=== PATIENT | female | born 1985 | race Caucasian/White ===

== ENCOUNTER 2017-10-17 14:36 | Emergency (ER) | payer OTHER ==
[~2017-10-17] VITALS: Ht 160 cm; Wt 99.8 kg
[~2017-10-17 14:36] MED LIST: ALBU2.5V36 INH; AZIT-18 PO; BISA10SU62 RC; CETI-184 PO; CITA-139 PO; DICY10CA11 PO; DUL20 PO; ESTR1PAT2 TD; FLUT16SP19 NS; GEMF600T91 PO; HYDR-4309 PO; LORA-630 PO; METH18TA11 PO; OMEP-125 PO; OXCA150T45 PO; PRED-1 PO; PSYL1000 MC; ROPI1TAB36 PO; SOD1POWD MC; SUMA25TA27 PO; [UNRECOGNIZED DRUG - CODE] PO
[2017-10-17] MEDS ORDERED: diphenhydrAMINE 50 MG/ML VIAL IVP ONE (14:50)
[2017-10-17] MEDS ORDERED: FAMOTIDINE(*) 20MG/50ML PREMIX 50 ML IVPB ONE (14:50)
[2017-10-17] MEDS ORDERED: methylPREDNIS SUCC 125 MG/2ML IVP ONE (14:50)
--- NOTE | 2017-10-17 14:53 | ER Report ---
History and Physical Time Seen By MD: 14:40 Hx. of Stated Complaint: HIVES EVERYWHERE FOR A WEEK. ON PREDINSONE, BENADRYL. GETTING WORSE HPI/ROS CHIEF COMPLAINT: Hives HISTORY OF PRESENT ILLNESS: Patient is a 32-year-old female accompanied by her significant other, who presents the ED with complaint of hives for the past 10 days. Patient states that she did see her primary care provider 3 days ago and was prescribed prednisone. She states that she has also been taking some Benadryl intermittently. She states that her last dose of Benadryl was 10 hours ago. Patient states that she feels that the hives have slightly worsened and was told by her primary care provider to go to the ER if this happens. Patient states that otherwise she is feeling well. She denies any difficulty breathing, cough, fever, tongue/lip swelling. She denies any new medications, foods, soaps , detergents. She states that she normally does not have hives. She states she did have hives about 18 years ago from stress. She states that she does not feel stressed right now. REVIEW OF SYSTEMS: Respiratory: No cough, no dyspnea. Cardiovascular: No chest pain, no palpitations. Gastrointestinal: No vomiting, no abdominal pain. Musculoskeletal: No back pain. Skin: See history of present illness. Allergies: Coded Allergies: promethazine (Verified Allergy, Intermediate, 10/17/17) Home Meds Active Scripts Methylprednisolone (METHYLPREDNISOLONE) 4 Mg Tab.ds.pk, 4 MG PO DIRECTED, #1 PACK Prov:YURI SMITH PA-C 10/17/17 Prednisone 10 Mg Tab (PREDNISONE 10 MG TAB) 10 Mg Tablet, 10 MG PO QDAY for reduce inflammation, #5 TAB Prov:ANTOINETTE GIL DO 09/13/16 Hydrocodone Bit/Acetaminophen (NORCO 5-325 TABLET) 1 Each Tablet, 1 EACH PO Q4H Y for PAIN, #12 TAB Prov:ANTOINETTE GIL DO 09/13/16 Reported Medications Albuterol Sulfate 0.083% (ALBUTEROL SULFATE 0.083%) 2.5 Mg/3 Ml Vial.neb, 2.5 MG INH, INH 09/12/16 Fluticasone Prop 50 Mcg Ns (FLONASE 50 MCG NS) 16 Gm [place].susp, 1 SPRAY NS BID , BOT 09/12/16 Sumatriptan Succinate (SUMATRIPTAN SUCCINATE) 25 Mg Tablet, 25 MG PO ONCE 09/12/16 Gemfibrozil (GEMFIBROZIL) 600 Mg Tablet, 600 MG PO BID 09/12/16 Ropinirole Hcl (ROPINIROLE HCL) 1 Mg Tablet, 1 MG PO TID 09/12/16 Dicyclomine Hcl (DICYCLOMINE HCL) 10 Mg Capsule, 10 MG PO QID, CAPSULE 09/12/16 Psyllium Husk (PSYLLIUM HUSK) 1,000 Gm Powder, 1000 GM MC 09/12/16 Methylphenidate Hcl (METHYLPHENIDATE ER) 18 Mg Tab.er.24, 18 MG PO QDAY 09/12/16 Estradiol (ESTRADIOL 0.025 MG) 1 Each Patch.tdwk, 1 EACH TD Q7D, PATCH.WK 09/12/16 Oxcarbazepine (OXCARBAZEPINE) 150 Mg Tablet, 150 MG PO 09/12/16 Cetirizine Hcl (CETIRIZINE HCL) 10 Mg Tab.chew, 10 MG PO QDAY, TAB.CHEW 09/12/16 Omeprazole (OMEPRAZOLE) 20 Mg Capsule.dr, 1 CAP PO BID, CAP 09/12/16 Duloxetine Hcl (CYMBALTA) 20 Mg Capcr, 20 MG PO QDAY, #5 CAP 09/12/16 Etodolac (ETODOLAC) 200 Mg Capsule, 200 MG PO, CAPSULE 09/12/16 Sod Phosphate Dibasic,Hepathyd (SODIUM PHOSPHATE) 1 Gm Powder, 1 GM MC 09/12/16 Citalopram Hydrobromide (CITALOPRAM HBR) 20 Mg Tablet, 20 MG PO QDAY, #5 TAB 09/12/16 Bisacodyl (BISACODYL) 10 Mg Supp.rect, 10 MG RC, SUPP.RECT 09/12/16 Lorazepam (LORAZEPAM) 0.5 Mg Tablet, 0.5 MG PO Q4-6H 09/12/16 Discontinued Scripts Azithromycin 250 Mg Tab (AZITHROMYCIN 250 MG TAB) 250 Mg Tablet, 0 PO QDAY, #6 TAB TAKE 2 TABLETS ON DAY 1 AND 1 TABLET ON DAYS 2-5 Prov:ANTOINETTE GIL DO 09/13/16 Reviewed Nurses Notes: Yes Old Medical Records Reviewed: Yes Hx Substance Use Disorder: No Constitutional Vital Sign - Last 24 Hours 1/14/18 1/14/18 1/14/18 1/14/18 14:41 14:43 14:51 15:00 Temp 98.0 Pulse 109 94 Resp 16 B/P (MAP) 130/92 130/92 (105) 114/78 (90) Pulse Ox 97 95 O2 Delivery Room Air 10/17/17 15:06 Pulse 97 Pulse Ox 97 Physical Exam General Appearance: The patient is alert, has no immediate need for airway protection and no signs of toxicity. Patient appears to be no acute distress. Eyes: Pupils equal and round no pallor or injection. ENT, Mouth: Mucous membranes are moist. No evidence of tongue, pharyngeal, lip swelling.Respiratory: There are no retractions, lungs are clear to auscultation. Cardiovascular: Regular rate and rhythm. Gastrointestinal: Abdomen is soft and non tender, no masses, bowel sounds normal. Skin: There is a faint maculopapular type rash noted on face, chest, abdomen, back, all 4 extremities. Musculoskeletal: Neck is supple non tender. Extremities are nontender, nonswollen and have full range of motion. DIFFERENTIAL DIAGNOSIS: After history and physical exam differential diagnosis was considered for rash including allergy, viral, other illness. Medical Decision Making ED Course/Re-evaluation ED Course Patient will be given 20 mg IV famotidine, 50 mg IV Benadryl, 125 mg IV Solu- Medrol. Discussed with patient about possible etiologies of her rash/urticaria. Advised her to be taking a antihistamine daily such as 24-hour Claritin, Zyrtec, or Delma. Will prescribe some Medrol Dosepak for her as well. Advised to follow- up with the primary care provider and possibly may need an coiler if this continues. Decision to Disposition Date: Oct 17, 2017 Decision to Disposition Time: 15:22 Depart Departure Latest Vital Signs Vital Signs Date Time Temp Pulse Resp B/P (MAP) Pulse Ox O2 Delivery O2 Flow Rate FiO2 10/17/17 15:06 97 97 10/17/17 15:00 114/78 (90) 10/17/17 14:41 98.0 16 Room Air Impression: Primary Impression: Rash Condition: Improved Disposition: HOME OR SELF-CARE Referrals: MANAN LAW (PCP) New Scripts Methylprednisolone (METHYLPREDNISOLONE) 4 Mg Tab.ds.pk 4 MG PO DIRECTED, #1 PACK Prov: YURI SMITH PA-C 10/17/17 Patient Instructions: Acute Rash (ED), Urticaria (ED) Additional Instructions: Follow-up with primary care provider in 1-2 days. May take [id number] antihistamine, 24-hour formula, daily. If having any worsening or concerning symptoms may return to the emergency department. YURI SMITH PA-C Oct 17, 2017 14:53
[2017-10-17 15:00] VITALS: BP 114/78
[2017-10-17] MEDS ORDERED: METH4TAB66 PO (15:04)
== END 2017-10-17 15:26 | disposition home or self-care (01) ==
LOC: ER 14:44
DX: R21 Rash and other nonspecific skin eruption (principal)
CPT/HCPCS: 99283; J1200; J2930; J3490; 96365; 96375

== ENCOUNTER 2017-10-28 02:36 | Emergency (ER) | payer OTHER ==
[~2017-10-28] VITALS: Ht 160 cm; Wt 99.8 kg
[~2017-10-28 02:36] MED LIST changes: +METH4TAB66 PO
--- NOTE | 2017-10-28 02:39 | ER Report ---
History and Physical Time Seen By MD: 02:38 HPI/ROS CHIEF COMPLAINT: Hives, skin burning HISTORY OF PRESENT ILLNESS: 32-year-old female presents for her 3rd visit to the ER with hives in skin burning. Patient states her symptoms started approximately 3 days ago. They've become unbearable tonight. She's been taking hydroxyzine without relief. She takes she's having an allergic reaction. She's been to see her primary care. She is unable to recall anything that she is might likely be allergic to. She's been taking hydroxyzine. She was seen here in the ER approximately 2 weeks ago and placed on a Medrol Dosepak with improvement. Patient denies throat swelling sensation or difficulty breathing. She notes 4/10 skin burning. Her face is flushed. Patient was referred to ENT, but was unsure why she was there, the ENT doctor was no help per her report REVIEW OF SYSTEMS: Respiratory: No cough, no dyspnea. Cardiovascular: No chest pain, no palpitations. Gastrointestinal: No vomiting, no abdominal pain. Musculoskeletal: No back pain. Allergies: Coded Allergies: promethazine (Verified Allergy, Intermediate, 10/28/17) Home Meds Active Scripts Methylprednisolone (METHYLPREDNISOLONE) 4 Mg Tab.ds.pk, 4 MG PO DIRECTED for urticaria, #1 TAB Prov:ANTOINETTE GIL DO 10/28/17 Methylprednisolone (METHYLPREDNISOLONE) 4 Mg Tab.ds.pk, 4 MG PO DIRECTED, #1 PACK Prov:YURI SMITH PA-C 10/17/17 Prednisone 10 Mg Tab (PREDNISONE 10 MG TAB) 10 Mg Tablet, 10 MG PO QDAY for reduce inflammation, #5 TAB Prov:ANTOINETTE GIL DO 09/13/16 Hydrocodone Bit/Acetaminophen (NORCO 5-325 TABLET) 1 Each Tablet, 1 EACH PO Q4H Y for PAIN, #12 TAB Prov:ANTOINETTE GIL DO 09/13/16 Reported Medications Hydroxyzine Hcl (HYDROXYZINE HCL) 25 Mg Tablet, 1-2 TAB PO HS Y for RASH 10/28/17 Albuterol Sulfate 0.083% (ALBUTEROL SULFATE 0.083%) 2.5 Mg/3 Ml Vial.neb, 2.5 MG INH, INH 09/12/16 Fluticasone Prop 50 Mcg Ns (FLONASE 50 MCG NS) 16 Gm [place].susp, 1 SPRAY NS BID , BOT 09/12/16 Sumatriptan Succinate (SUMATRIPTAN SUCCINATE) 25 Mg Tablet, 25 MG PO ONCE 09/12/16 Gemfibrozil (GEMFIBROZIL) 600 Mg Tablet, 600 MG PO BID 09/12/16 Ropinirole Hcl (ROPINIROLE HCL) 1 Mg Tablet, 1 MG PO TID 09/12/16 Dicyclomine Hcl (DICYCLOMINE HCL) 10 Mg Capsule, 10 MG PO QID, CAPSULE 09/12/16 Psyllium Husk (PSYLLIUM HUSK) 1,000 Gm Powder, 1000 GM MC 09/12/16 Methylphenidate Hcl (METHYLPHENIDATE ER) 18 Mg Tab.er.24, 18 MG PO QDAY 09/12/16 Estradiol (ESTRADIOL 0.025 MG) 1 Each Patch.tdwk, 1 EACH TD Q7D, PATCH.WK 09/12/16 Oxcarbazepine (OXCARBAZEPINE) 150 Mg Tablet, 150 MG PO 09/12/16 Cetirizine Hcl (CETIRIZINE HCL) 10 Mg Tab.chew, 10 MG PO QDAY, TAB.CHEW 09/12/16 Omeprazole (OMEPRAZOLE) 20 Mg Capsule.dr, 1 CAP PO BID, CAP 09/12/16 Duloxetine Hcl (CYMBALTA) 20 Mg Capcr, 20 MG PO QDAY, #5 CAP 09/12/16 Etodolac (ETODOLAC) 200 Mg Capsule, 200 MG PO, CAPSULE 09/12/16 Sod Phosphate Dibasic,Hepathyd (SODIUM PHOSPHATE) 1 Gm Powder, 1 GM MC 09/12/16 Citalopram Hydrobromide (CITALOPRAM HBR) 20 Mg Tablet, 20 MG PO QDAY, #5 TAB 09/12/16 Bisacodyl (BISACODYL) 10 Mg Supp.rect, 10 MG RC, SUPP.RECT 09/12/16 Lorazepam (LORAZEPAM) 0.5 Mg Tablet, 0.5 MG PO Q4-6H 09/12/16 Past Medical/Surgical History Past medical history: Tachycardia, gastroparesis, depression, recurrent hives Past surgical history: Tonsillectomy, wisdom tooth extraction, hysterectomy with oophorectomy Reviewed Nurses Notes: Yes Old Medical Records Reviewed: Yes Hx Substance Use Disorder: No Constitutional Vital Sign - Last 24 Hours 10/28/17 10/28/17 02:47 03:30 Temp 99.0 Pulse 146 122 Resp 16 20 B/P (MAP) 105/86 95/74 (81) Pulse Ox 97 95 O2 Delivery Room Air Room Air Physical Exam General Appearance: The patient is alert, has no immediate need for airway protection and no current signs of toxicity. Vital signs stable, low-grade fever, mild tachycardia, facial flushing HEENT: Pupils equal and round no injection. TMs normal, oropharynx without edema or erythema Respiratory: Chest is non tender, lungs are clear to auscultation. No wheezing or rails Cardiac: regular rate and rhythm Gastrointestinal: Abdomen is soft and non tender, no masses, bowel sounds normal. Musculoskeletal: Neck: Neck is supple and non tender. No lymphadenopathy Extremities have full range of motion and are non tender. Skin: No rashes or lesions. DIFFERENTIAL DIAGNOSIS: After history and physical exam differential diagnosis was considered for allergic reaction, urticaria, hives Medical Decision Making ED Course/Re-evaluation ED Course Patient was admitted to an examination room. H&P was done. The differential diagnosis was considered. Patient with recurrent hives and skin burning. Patient's prescribed Medrol initial starting dose. She has a bottle of hydroxyzine 25 mg. Patient was medicated with Medrol 24 mg. She is discharged home with a prescription for Medrol Dosepak. She is advised to follow-up with primary care for referral to restaurant host. She was given information follow-up with restaurant host. She is cautioned return to the ER for any worsening such as airway closing or difficulty breathing. Decision to Disposition Date: Oct 28, 2017 Decision to Disposition Time: 03:12 Depart Departure Latest Vital Signs Vital Signs Date Time Temp Pulse Resp B/P (MAP) Pulse Ox O2 Delivery O2 Flow Rate FiO2 10/28/17 03:30 122 20 95/74 (81) 95 Room Air 10/28/17 02:47 99.0 Impression: Primary Impression: Urticaria Condition: Improved Disposition: HOME OR SELF-CARE Referrals: ULISSES COCHRAN APRN (PCP) New Scripts Methylprednisolone (METHYLPREDNISOLONE) 4 Mg Tab.ds.pk 4 MG PO DIRECTED for urticaria, #1 TAB Prov: ANTOINETTE GIL DO 10/28/17 Patient Instructions: Urticaria (ED) Additional Instructions: Follow-up with restaurant host listed below Take hydroxyzine 25 mg 1-2 tablets every 6-8 hours as needed for itching and hives [facility] Address: [facility] [address], [place] [address] [facility] Address: [address], [place] [address] ANTOINETTE GIL DO Oct 28, 2017 02:39
[2017-10-28] MEDS ORDERED: HYDR-4225 PO (02:47)
[2017-10-28] MEDS ORDERED: predniSONE 20 MG TAB PO ONE (02:50)
[2017-10-28] MEDS ORDERED: methylPREDNIS 4 MG TAB PO SCH (03:05)
[2017-10-28] MEDS ORDERED: METH4TAB66 PO (03:17)
[2017-10-28 03:30] VITALS: BP 95/74
== END 2017-10-28 03:35 | disposition home or self-care (01) ==
LOC: ER 02:48
DX: L50.9 Urticaria, unspecified (principal)
CPT/HCPCS: 99281; J7509

== ENCOUNTER → 2018-02-08 | Outpatient (CLI) | payer BC ==
[~2018-02-08] MED LIST changes: +HYDR-4225 PO
== END ==
LOC: LAB 08:00
PROVIDERS: ATTEND Nurse Practitioner Family
DX: E78.5 Hyperlipidemia, unspecified (principal)
CPT/HCPCS: 36415; 82465; 83718; 84478

== ENCOUNTER → 2018-02-22 | Outpatient (CLI) | payer BC ==
[~2018-02-22] MED LIST changes: -CITA-139 PO; +CITA-145 PO
== END ==
LOC: LAB 13:23
PROVIDERS: ATTEND Nurse Practitioner Family
DX: L50.9 Urticaria, unspecified (principal); L29.9 Pruritus, unspecified
CPT/HCPCS: 36415; 86003

== ENCOUNTER 2018-05-01 21:10 | Emergency (ER) | payer BC ==
--- NOTE | 2018-05-01 21:16 | ER Report ---
History and Physical Time Seen By MD: 21:12 HPI/ROS CHIEF COMPLAINT: wrist/forearm injury HISTORY OF PRESENT ILLNESS: This is a 32 year old female. She slipped and fell, just prior to coming to the ER tonight, severe pain, striking her wrist and arm , right side, on a counter. Has pain in the radial side of the wrist and shoots into thumb and forearm toward the elbow. Can move it, but causes pain. Has normal sensation. Allergies: Coded Allergies: promethazine (Verified Allergy, Intermediate, 10/28/17) aluminum (Verified Allergy, Unknown, 05/01/18) Home Meds Reported Medications Trazodone Hcl (TRAZODONE HCL) 50 Mg Tablet, 50 MG PO QHS 05/01/18 Oxcarbazepine (OXCARBAZEPINE) 150 Mg Tablet, 150 MG PO 09/12/16 Discontinued Reported Medications Hydroxyzine Hcl (HYDROXYZINE HCL) 25 Mg Tablet, 1-2 TAB PO HS Y for RASH 10/28/17 Albuterol Sulfate 0.083% (ALBUTEROL SULFATE 0.083%) 2.5 Mg/3 Ml Vial.neb, 2.5 MG INH, INH 09/12/16 Fluticasone Prop 50 Mcg Ns (FLONASE 50 MCG NS) 16 Gm [place].susp, 1 SPRAY NS BID , BOT 09/12/16 Sumatriptan Succinate (SUMATRIPTAN SUCCINATE) 25 Mg Tablet, 25 MG PO ONCE 09/12/16 Gemfibrozil (GEMFIBROZIL) 600 Mg Tablet, 600 MG PO BID 09/12/16 Ropinirole Hcl (ROPINIROLE HCL) 1 Mg Tablet, 1 MG PO TID 09/12/16 Dicyclomine Hcl (DICYCLOMINE HCL) 10 Mg Capsule, 10 MG PO QID, CAPSULE 09/12/16 Psyllium Husk (PSYLLIUM HUSK) 1,000 Gm Powder, 1000 GM MC 09/12/16 Methylphenidate Hcl (METHYLPHENIDATE ER) 18 Mg Tab.er.24, 18 MG PO QDAY 09/12/16 Estradiol (ESTRADIOL 0.025 MG) 1 Each Patch.tdwk, 1 EACH TD Q7D, PATCH.WK 09/12/16 Cetirizine Hcl (CETIRIZINE HCL) 10 Mg Tab.chew, 10 MG PO QDAY, TAB.CHEW 09/12/16 Omeprazole (OMEPRAZOLE) 20 Mg Capsule.dr, 1 CAP PO BID, CAP 09/12/16 Duloxetine Hcl (CYMBALTA) 20 Mg Capcr, 20 MG PO QDAY, #5 CAP 09/12/16 Etodolac (ETODOLAC) 200 Mg Capsule, 200 MG PO, CAPSULE 09/12/16 Sod Phosphate Dibasic,Hepathyd (SODIUM PHOSPHATE) 1 Gm Powder, 1 GM MC 09/12/16 Citalopram Hydrobromide (CITALOPRAM HBR) 20 Mg Tablet, 20 MG PO QDAY, #5 TAB 09/12/16 Bisacodyl (BISACODYL) 10 Mg Supp.rect, 10 MG RC, SUPP.RECT 09/12/16 Lorazepam (LORAZEPAM) 0.5 Mg Tablet, 0.5 MG PO Q4-6H 09/12/16 Discontinued Scripts Methylprednisolone (METHYLPREDNISOLONE) 4 Mg Tab.ds.pk, 4 MG PO DIRECTED for urticaria, #1 TAB Prov:ANTOINETTE GIL DO 10/28/17 Methylprednisolone (METHYLPREDNISOLONE) 4 Mg Tab.ds.pk, 4 MG PO DIRECTED, #1 PACK Prov:YURI SMITH PA-C 10/17/17 Prednisone 10 Mg Tab (PREDNISONE 10 MG TAB) 10 Mg Tablet, 10 MG PO QDAY for reduce inflammation, #5 TAB Prov:ANTOINETTE GIL DO 09/13/16 Hydrocodone Bit/Acetaminophen (NORCO 5-325 TABLET) 1 Each Tablet, 1 EACH PO Q4H Y for PAIN, #12 TAB Prov:ANTOINETTE GIL DO 09/13/16 Reviewed Nurses Notes: Yes Hx Substance Use Disorder: No Constitutional Vital Sign - Last 24 Hours 05/01/18 05/01/18 21:10 22:03 Temp 98.1 Pulse 84 103 Resp 16 16 B/P (MAP) 124/81 124/81 (95) Pulse Ox 97 92 O2 Delivery Room Air Room Air Physical Exam General Appearance: Alert, some distress due to pain and worry. Respiratory: Breathing easily. Cardiac: regular rate and rhythm, normal capillary refill and pulses. Musculoskeletal: Pain with palpation over the wrist area, mainly radial side. No pain with palpation of the thumb or hand. Pain in the mid forearm. No pain at elbow or above with palpation. Skin: No rashes or lesions. DIFFERENTIAL DIAGNOSIS: After history and physical exam differential diagnosis was considered for wrist/forearm injury as noted, check for contusion, sprain, or fractures. Medical Decision Making EKG/Imaging Imaging EXAMINATION: Right wrist 3 views Right forearm 2 views. HISTORY: Fell. Hit right forearm/wrist COMPARISON: None. FINDINGS: No evidence of acute fracture or dislocation about the right wrist. Normal alignment. Joint spaces are preserved. Soft tissues are unremarkable. The right radius and ulna appear intact on the right forearm views. No evidence of fracture. Normal alignment at the right elbow. Soft tissues are radiographically unremarkable. IMPRESSION: 1. Negative right wrist. 2. Negative right forearm. Report Dictated By: Rich Sue MD at 05/01/2018 9:45 PM ED Course/Re-evaluation ED Course No fractures noted on imaging. Will observe conservative management and discussed this with the patient. Sling, ENRIQUE wrap, ice, Ibuprofen. Decision to Disposition Date: May 01, 2018 Decision to Disposition Time: 21:54 Depart Departure Latest Vital Signs Vital Signs Date Time Temp Pulse Resp B/P (MAP) Pulse Ox O2 Delivery O2 Flow Rate FiO2 05/01/18 22:03 103 16 124/81 (95) 92 Room Air 05/01/18 21:10 98.1 Impression: Primary Impression: Contusion Additional Impression: Wrist sprain Condition: Improved Disposition: HOME OR SELF-CARE Referrals: ULISSES COCHRAN APRN (PCP) Patient Instructions: Contusion in Adults (ED), Wrist Sprain (ED) Additional Instructions: Ibuprofen 200mg over the counter tablets, take 4 tablets three times a day with food. Apply ice 20 minutes every 1-2 hours while awake. An ENRIQUE wrap can be used for compression to help reduce swelling. Rest the injured area, keep it elevated while at rest. Begin gentle range of motion exercises. Problem Qualifiers Primary Impression: Contusion Encounter type: initial encounter Contusion area: forearm Laterality: right Qualified Codes: S50.11XA - Contusion of right forearm, initial encounter Additional Impression: Wrist sprain Encounter type: initial encounter Laterality: right Qualified Codes: S63.501A - Unspecified sprain of right wrist, initial encounter CHAYITO JIMENEZ MD May 01, 2018 21:16
[2018-05-01] MEDS ORDERED: TRAZ50TA34 PO (21:17)
--- NOTE | 2018-05-01 21:51 | RADIOLOGY IMAGING REPORT ---
FACILITY: [facility] - [place] PATIENT NAME: Daniela Hazel : 1985 MR: [id number] V: [id number] EXAM DATE: ORDERING PHYSICIAN: CHAYITO JIMENEZ TECHNOLOGIST: Location: [facility] Patient: Daniela Hazel : 1985 Visit/Account:[id number] Date of Sevice: 05/01/2018 EXAMINATION: Right wrist 3 views Right forearm 2 views. HISTORY: Fell. Hit right forearm/wrist COMPARISON: None. FINDINGS: No evidence of acute fracture or dislocation about the right wrist. Normal alignment. Joint spaces are preserved. Soft tissues are unremarkable. The right radius and ulna appear intact on the right forearm views. No evidence of fracture. Normal a lignment at the right elbow. Soft tissues are radiographically unremarkable. IMPRESSION: 1. Negative right wrist. 2. Negative right forearm. Report Dictated By: Rich Sue MD at 05/01/2018 9:45 PM Report E-Signed By: Rich Sue MD at 05/01/2018 9:48 PM WSN:[id number]
--- NOTE | 2018-05-01 21:51 | RADIOLOGY IMAGING REPORT ---
FACILITY: [facility] PATIENT NAME: Daniela Hazel : 1985 MR: [id number] V: [id number] EXAM DATE: ORDERING PHYSICIAN: CHAYITO JIMENEZ TECHNOLOGIST: Location: [facility] [place] Patient: Daniela Hazel : 1985 Visit/Account:[id number] Date of Sevice: 05/01/2018 EXAMINATION: Right wrist 3 views Right forearm 2 views. HISTORY: Fell. Hit right forearm/wrist COMPARISON: None. FINDINGS: No evidence of acute fracture or dislocation about the right wrist. Normal alignment. Joint spaces are preserved. Soft tissues are unremarkable. The right radius and ulna appear intact on the right forearm views. No evidence of fracture. Normal a lignment at the right elbow. Soft tissues are radiographically unremarkable. IMPRESSION: 1. Negative right wrist. 2. Negative right forearm. Report Dictated By: Rich Sue MD at 05/01/2018 9:45 PM Report E-Signed By: Rich Sue MD at 05/01/2018 9:48 PM WSN:[id number]
[2018-05-01 22:03] VITALS: BP 124/81
== END 2018-05-01 22:03 | disposition home or self-care (01) ==
LOC: ER 21:15
DX: S63.501A Unspecified sprain of right wrist, initial encounter (principal); W01.0XXA Fall on same level from slipping, tripping and stumbling without subsequent striking against object, initial encounter
CPT/HCPCS: 73090; 73110; 99283; A4565